=== PATIENT | female | born 1945 | race Caucasian/White ===

== ENCOUNTER → 2021-08-14 | Outpatient (CLI) | payer MEDICARE | LOC: KOH-I 08-08 11:15 | DX: H93.A1 Pulsatile tinnitus, right ear (principal); I66.03 Occlusion and stenosis of bilateral middle cerebral arteries | CPT/HCPCS: 70544 ==

== ENCOUNTER → 2021-09-16 | Outpatient (CLI) | payer MEDICARE | LOC: EXRD 14:32 | DX: I65.23 Occlusion and stenosis of bilateral carotid arteries (principal) | CPT/HCPCS: 93880 ==